=== PATIENT | female | born 1990 | race American Indian/Alaskan Native ===

== ENCOUNTER 2018-10-20 11:40 | Emergency (ER) | payer SELFPAY ==
--- NOTE | 2018-10-20 11:48 | Emergency Department Report ---
Blank Doc - Documentation Documentation: 28 Female on norplant c/o 4 day history of improving N/V/D with over 10 episodes daily. No associated hemoptysis or hematocezia. Her niece and son had symptoms first and have improved now she has them. Better but still has cramps and aches. Plan Labs and preg test. Medicate and discharge. Fast Track for further evaluation and definitive management
[2018-10-20] MEDS ORDERED: LEVSIN SL SL ONE (11:49)
[2018-10-20] MEDS ORDERED: ZOFRAN ODT PO STA (11:49)
[2018-10-20 12:02] VITALS: BP 140/91
[2018-10-20] MEDS ORDERED: NACL 0.9% 1000 ML 1,000 ML IV ONE (12:16)
--- NOTE | 2018-10-20 12:18 | Emergency Department Report ---
ED N/V/D HPI - General Chief complaint: Nausea/Vomiting/Diarrhea Stated complaint: VOMITING,DIARRHEA Time Seen by Provider: 10/20/18 11:44 Source: patient Mode of arrival: Ambulatory Limitations: No Limitations - History of Present Illness Initial comments: 28-year-old female presents to ED with complaint of vomiting and diarrhea 3 days. Patient reports niece and son are also sick with the same symptoms. The patient denies any significant abdominal pain. Denies fever. Hasn't taken any medication for relief at home. MD complaint: nausea, vomiting, diarrhea -: days(s) (3) Description of Vomiting: food contents Description of Diarrhea: water Associated Abdominal Pain: No Severity: moderate Consistency: constant Improves with: none Worsens with: eating Context: sick contacts Associated Symptoms: denies: fever/chills - Related Data Previous Rx's Medication Instructions Recorded Last Taken Type Ondansetron [Zofran Odt] 4 mg PO Q8HR PRN #20 tab.rapdis 10/20/18 Unknown Rx Allergies Allergy/AdvReac Type Severity Reaction Status Date / Time No Known Allergies Allergy Unverified 10/20/18 11:41 ED Review of Systems ROS: Stated complaint: VOMITING,DIARRHEA Other details as noted in HPI Comment: All other systems reviewed and negative Constitutional: denies: chills, fever Gastrointestinal: nausea, vomiting, diarrhea ED Past Medical Hx - Past Medical History Previous Medical History?: No - Surgical History Additional Surgical History: C SECTION - Social History Smoking Status: Never Smoker Substance Use Type: None - Medications Home Medications: Home Medications Medication Instructions Recorded Confirmed Last Taken Type Ondansetron [Zofran Odt] 4 mg PO Q8HR PRN #20 tab.rapdis 10/20/18 Unknown Rx ED Physical Exam - General Limitations: No Limitations General appearance: alert, in no apparent distress - Head Head exam: Present: atraumatic, normocephalic - Eye Eye exam: Present: normal appearance - ENT ENT exam: Present: mucous membranes moist - Neck Neck exam: Present: normal inspection - Respiratory Respiratory exam: Present: normal lung sounds bilaterally. Absent: respiratory distress - Cardiovascular Cardiovascular Exam: Present: regular rate, normal rhythm - GI/Abdominal GI/Abdominal exam: Present: soft. Absent: distended, tenderness - Extremities Exam Extremities exam: Present: normal inspection - Neurological Exam Neurological exam: Present: alert, oriented X3 - Psychiatric Psychiatric exam: Present: normal affect, normal mood - Skin Skin exam: Present: warm, dry, intact, normal color ED Course Vital Signs 10/20/18 11:45 Temperature 98.3 F Pulse Rate 97 H Respiratory 18 Rate Blood Pressure 140/91 O2 Sat by Pulse 98 Oximetry ED Medical Decision Making - Lab Data Result diagrams: 10/20/18 Unknown 10/20/18 Unknown - Medical Decision Making - N/V/D reported - sick contacts at home - mild hypokalemia - IV fluids, meds given - tolerating PO - d/c home - return precautions given - outpt f/u advised - Differential Diagnosis gastroenteritis, hypokalemia, dehydration Critical care attestation.: If time is entered above; I have spent that time in minutes in the direct care o f this critically ill patient, excluding procedure time. ED Disposition Clinical Impression: Gastroenteritis, Hypokalemia Disposition: DC-01 TO HOME OR SELFCARE Is pt being admited?: No Condition: Stable Instructions: Hypokalemia (ED), Gastroenteritis (ED) Prescriptions: Ondansetron [Zofran Odt] 4 mg PO Q8HR PRN #20 tab.rapdis PRN Reason: Vomiting [facility]Primary Care Provider[facility] - 3-5 Days PRIMARY CAREMD [Referring] - 3-5 Days Forms: Work/School Release Form(ED) Time of Disposition: 13:14
[2018-10-20 12:38] LABS: Bacteria,Urine 1+ /HPF (Negative); Bilirubin,Urine NEG (Negative); Blood,Urine LG (Negative); Color,Urine Yellow (Yellow); Mucus,Urine FEW /HPF; Protein,Urine <15 mg/dL mg/dL (Negative); Urobilinogen,Urine < 2.0 mg/dL (<2.0)
[2018-10-20 12:42] LABS: Basophils % (Auto) 0.3 % (0.0-1.8); Eosinophils % (Auto) 0.6 % (0.0-4.3); Hematocrit 36.3 % (30.3-42.9); Hemoglobin 12.5 gm/dl (10.1-14.3); Lymphocytes # (Auto) 1.2 K/mm3 (1.2-5.4); Mean Corpuscular HGB Conc 34 % (30-34); Mean Corpuscular Volume 89 fl (79-97); Monocytes # (Auto) 0.4 K/mm3 (0.0-0.8); Monocytes % (Auto) 9.3 % (0.0-7.3); Platelet Count 326 K/mm3 (140-440); Red Blood Count 4.09 M/mm3 (3.65-5.03); Red Cell Distribution Width 13.4 % (13.2-15.2)
[2018-10-20 12:50] LABS: HCG Qualitative,Urine Negative (Negative)
[2018-10-20 12:53] LABS: BUN/Creatinine Ratio 10; Blood Urea Nitrogen 8 mg/dL (7-17); Calcium 8.9 mg/dL (8.4-10.2); Hemolysis Index 3
[2018-10-20] MEDS ORDERED: K-DUR PO ONE (13:13)
== END 2018-10-20 13:58 | disposition home or self-care (01) ==
LOC: ED 11:40
DX: K52.9 Noninfective gastroenteritis and colitis, unspecified (principal); E87.6 Hypokalemia
CPT/HCPCS: 36415; 80048; 81001; 81025; 84702; 85025; 87086; 96360; 99283; J7030; Q0162

== ENCOUNTER 2020-06-18 00:01 | Emergency (ER) | payer SELFPAY ==
--- NOTE | 2020-06-18 00:27 | Emergency Department Report ---
ED N/V/D HPI - General Stated complaint: DIARRHEA/NAUSEA/HEADACHE/WEAKNESS PUI?: Yes Time Seen by Provider: 06/18/20 00:12 Source: patient Mode of arrival: Ambulatory Limitations: No Limitations - History of Present Illness Initial comments: 30-year-old female presents to the ER today complaining of diarrhea. Patient states that she has been having intermittent episodes of diarrhea for the past 2 weeks. Patient states that typically on average just been 3 times per week. She reports associated nausea, and headache. She denies any vomiting or abdo valdemar pain. She denies any fever or chills. She denies any mucus in the diarrhea, hematochezia or melena. She denies any apparent ill contacts, recent travel, or recent antibiotic use or recent bad food intake. She states that her last menstrual cycle was May 22. She reports no other symptoms at this time. complaint: nausea, diarrhea -: week(s) (2) - Related Data Previous Rx's Medication Instructions Recorded Last Taken Type Ondansetron [Zofran ODT TAB] 4 mg PO Q8HR PRN #20 tab.rapdis 06/18/20 Unknown Rx Allergies Allergy/AdvReac Type Severity Reaction Status Date / Time No Known Allergies Allergy Unverified 10/20/18 11:41 ED Review of Systems ROS: Stated complaint: DIARRHEA/NAUSEA/HEADACHE/WEAKNESS Other details as noted in HPI Comment: All other systems reviewed and negative Constitutional: denies: chills, fever Eyes: denies: eye pain, eye discharge, vision change ENT: denies: ear pain, throat pain Respiratory: denies: cough, shortness of breath, wheezing Cardiovascular: denies: chest pain, palpitations Gastrointestinal: nausea. denies: abdominal pain, vomiting, diarrhea, constipation, hematemesis, melena, hematochezia Musculoskeletal: denies: back pain, joint swelling, arthralgia Skin: denies: rash, lesions Neurological: headache. denies: weakness, paresthesias Psychiatric: denies: anxiety, depression Hematological/Lymphatic: denies: easy bleeding, easy bruising ED Past Medical Hx - Surgical History Additional Surgical History: C SECTION - Social History Smoking Status: Never Smoker Substance Use Type: None - Medications Home Medications: Home Medications Medication Instructions Recorded Confirmed Last Taken Type Ondansetron [Zofran ODT TAB] 4 mg PO Q8HR PRN #20 tab.nahomidis 06/18/20 Unknown Rx ED Physical Exam - General Limitations: No Limitations General appearance: alert, in no apparent distress - Head Head exam: Present: atraumatic, normocephalic, normal inspection - Eye Eye exam: Present: normal appearance, PERRL, EOMI Pupils: Present: normal accommodation - ENT ENT exam: Present: normal exam, mucous membranes moist - Neck Neck exam: Present: normal inspection, full ROM - Respiratory Respiratory exam: Present: normal lung sounds bilaterally. Absent: respiratory distress - Cardiovascular Cardiovascular Exam: Present: regular rate, normal rhythm, normal heart sounds - GI/Abdominal GI/Abdominal exam: Present: soft. Absent: distended, tenderness, guarding, rebound - Neurological Exam Neurological exam: Present: alert, oriented X3, CN II-XII intact, normal gait - Psychiatric Psychiatric exam: Present: normal affect, normal mood - Skin Skin exam: Present: intact ED Course Vital Signs 06/18/20 06/18/20 00:13 00:18 Temperature 99.1 F Pulse Rate 72 Respiratory 12 12 Rate Blood Pressure 173/98 142/89 O2 Sat by Pulse 100 Oximetry ED Medical Decision Making - Medical Decision Making 30-year-old female presents to the ER today complaining of diarrhea. Patient states that she has been having intermittent episodes of diarrhea for the past 2 weeks. Patient states that typically on average just been 3 times per week. She reports associated nausea, and headache. She denies any vomiting or abdominal pain. She denies any fever or chills. She denies any mucus in the diarrhea, hematochezia or melena. She denies any apparent ill contacts, recent travel, or recent antibiotic use or recent bad food intake. She states that her last menstrual cycle was May 22. She reports no other symptoms at this time. 1225; patient is well-appearing, nontoxic, she is not in any acute distress, and she appears well-hydrated. She has a soft nontender abdomen. He is neurologically intact with a normal gait. Her vital signs are stable. No dulce cation for work-up at this time. Discussed suspected diagnosis and treatment plan with patient. Recommend close follow-up with her primary care doctor. Patient expressed understanding of instructions and agree with plan. Patient stable at time of discharge. Critical care attestation.: If time is entered above; I have spent that time in minutes in the direct care of this critically ill patient, excluding procedure time. ED Disposition Clinical Impression: Diarrhea Disposition: DC-01 TO HOME OR SELFCARE Is pt being admited?: No Does the pt Need Aspirin: No Condition: Stable Instructions: Diarrhea, Adult, [id number] Additional Instructions: You can take Tylenol or Motrin as needed for pain. If you start having more than 3 episodes per day of diarrhea you can try Imodium [id number]. Take the Zofran given as prescribed to help with any nausea. If you start having significantly worsening diarrhea per day with associated blood in the diarrhea, significant abdominal pain, fever and vomiting return immediately to the ER. Prescriptions: Ondansetron [Zofran ODT TAB] 4 mg PO Q8HR PRN #20 tab.rapdis PRN Reason: Vomiting Referrals: KERRY JURADO MD [Staff Physician] - 3-5 Days Forms: Work/School Release Form(ED) Time of Disposition: 00:28
[2020-06-18 00:39] VITALS: BP 142/89
== END 2020-06-18 00:40 | disposition home or self-care (01) ==
LOC: ED 00:01
DX: R19.7 Diarrhea, unspecified (principal); Z79.899 Other long term (current) drug therapy
CPT/HCPCS: 99281

== ENCOUNTER 2021-08-04 20:26 | Emergency (ER) | payer SELFPAY ==
[2021-08-04] MEDS ORDERED: traMADol 50 MG TAB PO ONE (23:36)
--- NOTE | 2021-08-05 00:05 | Emergency Department Report ---
ED General Adult HPI - General Chief complaint: Pain General Stated complaint: EXTREME HIP/LEG PAIN Time Seen by Provider: 08/04/21 23:35 Source: patient Mode of arrival: Ambulatory Limitations: No Limitations - History of Present Illness Initial comments: Patient is a 31-year-old -[place] female who presents for left hip pain 5/10 for 1 week. This is a recurring problem for this patient for the last several years. Patient denies fall injury or trauma. Not sure because of exacerbation. There is no numbness no tingling no paralysis. No weakness. Pain is described as spasm achy, patient denies fall injury or new trauma. Symptoms are exacerbated by performing work duties and prolonged standing. There has been no back pain or trauma. Patient denies dysuria frequency or urgency, no vaginal discharge or bleeding. Concern for STI or last menstrual cycle 2 days ago. Severity scale (0 -10): 8 - Related Data Previous Rx's Medication Instructions Recorded Last Taken Type Ondansetron [Zofran ODT TAB] 4 mg PO Q8HR PRN #20 tab.rapdis 06/18/20 Unknown Rx Cyclobenzaprine [Flexeril] 10 mg PO BID PRN #20 tab 08/05/21 Unknown Rx Menthol/Camphor [[facility] 1 applicatio TP QID PRN #1 tube 08/05/21 Unknown Rx Ointment] Naproxen 500 mg PO BID PRN #30 tab 08/05/21 Unknown Rx Allergies Allergy/AdvReac Type Severity Reaction Status Date / Time No Known Allergies Allergy Verified 08/04/21 20:39 ED Review of Systems ROS: Stated complaint: EXTREME HIP/LEG PAIN Other details as noted in HPI Constitutional: denies: chills, fever Eyes: denies: eye pain, eye discharge, vision change ENT: denies: ear pain, throat pain Respiratory: denies: cough, shortness of breath, wheezing Cardiovascular: denies: chest pain, palpitations Endocrine: no symptoms reported Gastrointestinal: denies: abdominal pain, nausea, diarrhea Genitourinary: denies: urgency, dysuria, frequency, hematuria, discharge Musculoskeletal: other (Left hip pain). denies: back pain, joint swelling, arthralgia Skin: denies: rash, lesions Neurological: denies: headache, weakness, numbness, paresthesias, confusion, vertigo Psychiatric: denies: anxiety, depression Hematological/Lymphatic: denies: easy bleeding, easy bruising ED Past Medical Hx - Past Medical History Previous Medical History?: No - Surgical History Past Surgical History?: Yes Additional Surgical History: C SECTION - Social History Smoking Status: Never Smoker Substance Use Type: None - Medications Home Medications: Home Medications Medication Instructions Recorded Confirmed Last Taken Type Ondansetron [Zofran ODT TAB] 4 mg PO Q8HR PRN #20 tab.rapdis 06/18/20 Unknown Rx Cyclobenzaprine [Flexeril] 10 mg PO BID PRN #20 tab 08/05/21 Unknown Rx Menthol/Camphor [[facility] 1 applicatio TP QID PRN #1 tube 08/05/21 Unknown Rx Ointment] Naproxen 500 mg PO BID PRN #30 tab 08/05/21 Unknown Rx ED Physical Exam - General Limitations: No Limitations General appearance: alert, in no apparent distress - Head Head exam: Present: normocephalic, normal inspection - Eye Eye exam: Present: normal appearance, EOMI Pupils: Present: normal accommodation - ENT ENT exam: Present: mucous membranes moist - Neck Neck exam: Present: normal inspection, full ROM. Absent: tenderness - Respiratory Respiratory exam: Present: normal lung sounds bilaterally. Absent: respiratory distress, wheezes, stridor, chest wall tenderness - Cardiovascular Cardiovascular Exam: Present: regular rate, normal rhythm, normal heart sounds. Absent: systolic murmur, diastolic murmur, rubs, gallop - GI/Abdominal GI/Abdominal exam: Present: soft, normal bowel sounds. Absent: distended, tenderness, guarding, rebound, rigid, bruit, hernia - Rectal Rectal exam: Present: deferred - Extremities Exam Extremities exam: Present: normal inspection, full ROM - Expanded Lower Extremity Exam Left Hip exam: Present: full ROM, tenderness (left latera hip tenderness to deep palpation). Absent: swelling, abrasion, laceration, ecchymosis, deformity, crepidus, dislocation, erythema, external rotation, internal rotation, shortening Upper Leg exam: Present: full ROM. Absent: tenderness, swelling Knee exam: Present: full ROM. Absent: tenderness, swelling Lower Leg exam: Present: full ROM. Absent: tenderness, swelling Ankle exam: Present: full ROM. Absent: tenderness, swelling Foot/Toe exam: Present: normal inspection, full ROM. Absent: tenderness, swelling Gait: Positive: observed and limited by pain - Back Exam Back exam: Present: normal inspection, full ROM. Absent: CVA tenderness (R), CVA tenderness (L), paraspinal tenderness, vertebral tenderness - Neurological Exam Neurological exam: Present: alert, oriented X3, CN II-XII intact, reflexes normal - Expanded Neurological Exam Expanded Patient oriented to: Present: person, place, time Speech: Present: fluid speech Motor strength exam: RUE: 5, LUE: 5, RLE: 5, LLE: 5 Best Eye Response (Dracut): (4) open spontaneously Best Motor Response (Dracut): (6) obeys commands Best Verbal Response (Dracut): (5) oriented Gopi Total: 15 - Psychiatric Psychiatric exam: Present: normal affect, normal mood - Skin Skin exam: Present: warm, dry, intact, normal color. Absent: rash ED Medical Decision Making - Radiology Data Radiology results: report reviewed, image reviewed LEFT HIP 3 VIEW(S) INDICATION / CLINICAL INFORMATION: left hip pain COMPARISON: None available. FINDINGS: BONES / JOINT(S): No acute fracture or subluxation. No significant arthritis. SOFT TISSUES: No significant abnormality. ADDITIONAL FINDINGS: Additional AP view of the pelvis demonstrates no acute osseous injury of the pelvis or sacrum. SI joints are symmetric and there. No widening of the pubic symphysis. Proximal right femur unremarkable. IMPRESSION: 1. No acute pathology. No significant abnormality. Signer Name: Vero Eubanks II, MD Signed: 08/05/2021 12:17 AM Workstation Name: [id number] Transcribed By: YUNIOR Dictated By: VERO EUBANKS II, MD Electronically Authenticated By: VERO EUBANKS II, MD Signed Date/Time: 08/05/2116 DD/ TD/TT: - Medical Decision Making X-rays negative for fracture dislocation or subluxation. Plan NSAIDs, hip exercises, follow-up with your doctor in 2 to 3 days. Patient verbalized agreement understanding with discharge plan. Patient DC'd home in stable condition at this time. Pain is currently improved patient is ambulating with steady gait with no acute distress at this time. Critical care attestation.: If time is entered above; I have spent that time in minutes in the direct care of this critically ill patient, excluding procedure time. ED Disposition Clinical Impression: Strain of hip adductor muscle Qualifiers: Encounter type: initial encounter Laterality: left Qualified Code(s): S76.012A - Strain of muscle, fascia and tendon of left hip, initial encounter Disposition: HOME / SELF CARE / HOMELESS Is pt being admited?: No Does the pt Need Aspirin: No Condition: Stable Instructions: Adductor Muscle Strain, Adductor Muscle Strain Rehab-[facility] Additional Instructions: Take medications as prescribed, follow-up with your doctor in 2 to 3 days. Return to emergency department should symptoms worsen. Prescriptions: Cyclobenzaprine [Flexeril] 10 mg PO BID PRN #20 tab PRN Reason: Muscle Spasm Naproxen 500 mg PO BID PRN #30 tab PRN Reason: pain Menthol/Camphor [[facility] Ointment] 1 applicatio TP QID PRN #1 tube PRN Reason: pain Referrals: MICHAEL BARRERA MD [Staff Physician] - 3-5 Days Forms: Work/School Release Form(ED) Time of Disposition: 00:47
--- NOTE | 2021-08-05 00:21 | XRay Report ---
LEFT HIP 3 VIEW(S) INDICATION / CLINICAL INFORMATION: left hip pain COMPARISON: None available. FINDINGS: BONES / JOINT(S): No acute fracture or subluxation. No significant arthritis. SOFT TISSUES: No significant abnormality. ADDITIONAL FINDINGS: Additional AP view of the pelvis demonstrates no acute osseous injury of the pel vis or sacrum. SI joints are symmetric and there. No widening of the pubic symphysis. Proximal right femur unremarkable. IMPRESSION: 1. No acute pathology. No significant abnormality. Signer Name: Aly Eubanks II, MD Signed: 08/05/2021 12:17 AM Workstation Name: [id number]
== END 2021-08-05 00:55 | disposition home or self-care (01) ==
LOC: ED 20:26
DX: S76.012A Strain of muscle, fascia and tendon of left hip, initial encounter (principal); X58.XXXA Exposure to other specified factors, initial encounter; Y93.89 Activity, other specified; Y92.89 Other specified places as the place of occurrence of the external cause; Y99.8 Other external cause status
CPT/HCPCS: 99283